=== PATIENT | male | born 1995 | race Caucasian/White ===

== ENCOUNTER 2021-01-30 20:04 | Emergency (ER) | payer SELFPAY ==
[~2021-01-30] VITALS: Ht 177.8 cm; Wt 85.9 kg
[2021-01-30] MEDS ORDERED: ACETAMINOPHEN 500 MG TABLET PO ONE (20:45)
[2021-01-30] MEDS ORDERED: IBUPROFEN 400 MG TABLET PO ONE (20:45)
[2021-01-30 22:30] VITALS: BP 119/62
== END 2021-01-30 23:25 | disposition home or self-care (01) ==
LOC: EMS 20:06
DX: S62.613A Displaced fracture of proximal phalanx of left middle finger, initial encounter for closed fracture (principal); F12.90 Cannabis use, unspecified, uncomplicated; W23.0XXA Caught, crushed, jammed, or pinched between moving objects, initial encounter; Y93.89 Activity, other specified; Y92.89 Other specified places as the place of occurrence of the external cause; Y99.8 Other external cause status
CPT/HCPCS: 29280; 99283